=== PATIENT | female | born 1940 | race Caucasian/White ===

== ENCOUNTER 2021-07-28 06:58 | Day surgery (SDC) | payer MEDICARE ==
[2021-07-28] VITALS (7 sets, daily range): BP systolic 132–152; BP diastolic 55–82
[~2021-07-28] VITALS: Ht 170.2 cm; Wt 78.1 kg
[2021-07-28] MEDS ORDERED: albumin 25% 100mL bottle x 1 IV PRN (07:30)
[2021-07-28] MEDS ORDERED: LOSA1TAB36 PO (07:59)
== END 2021-07-28 09:55 | disposition home or self-care (01) ==
LOC: SSTAY O 06:58
PROVIDERS: ATTEND Preventive Medicine Aerospace Medicine
DX: R18.8 Other ascites (principal); I10 Essential (primary) hypertension; Z91.013 Allergy to seafood; Z79.899 Other long term (current) drug therapy
CPT/HCPCS: 49083; 87070; 87075; 88108; 88305

== ENCOUNTER 2021-08-19 06:02 | Day surgery (SDC) | payer MEDICARE ==
[~2021-08-19] VITALS: Ht 170.2 cm; Wt 74.8 kg
[~2021-08-19 06:02] MED LIST: LOSA1TAB36 PO
[2021-08-19 06:19] VITALS: BP 160/64
[2021-08-19 06:25] VITALS: BP 160/64
[2021-08-19] MEDS ORDERED: albumin 25% 100mL bottle x 1 IV PRN (06:30)
[2021-08-19 08:55] VITALS: BP 150/64
[2021-08-19 09:00] VITALS: BP 140/56
[2021-08-19 09:15] VITALS: BP 125/46
[2021-08-19 09:30] VITALS: BP 123/47
== END 2021-08-19 09:30 | disposition home or self-care (01) ==
LOC: SSTAY O 06:02
PROVIDERS: ATTEND Radiology Diagnostic Radiology
DX: R18.8 Other ascites (principal); R14.0 Abdominal distension (gaseous); I10 Essential (primary) hypertension; Z79.899 Other long term (current) drug therapy
CPT/HCPCS: 49083

== ENCOUNTER 2021-08-28 06:30 | Day surgery (SDC) | payer MEDICARE ==
[~2021-08-28] VITALS: Ht 170.2 cm; Wt 72.4 kg
[2021-08-28] MEDS ORDERED: albumin 25% 100mL bottle x 1 IV PRN (07:25)
[2021-08-28 07:38] VITALS: BP 149/71
[2021-08-28 08:14] VITALS: BP 139/88
[2021-08-28 08:30] VITALS: BP 127/62
[2021-08-28 08:45] VITALS: BP 133/60
[2021-08-28 09:00] VITALS: BP 124/59
[2021-08-28 09:10] VITALS: BP 122/52
== END 2021-08-28 09:15 | disposition home or self-care (01) ==
LOC: SSTAY O 06:30
PROVIDERS: ATTEND Radiology Diagnostic Radiology
DX: R18.8 Other ascites (principal); R14.0 Abdominal distension (gaseous); I10 Essential (primary) hypertension; C22.0 Liver cell carcinoma; Z91.013 Allergy to seafood; Z79.899 Other long term (current) drug therapy
CPT/HCPCS: 49083

== ENCOUNTER 2021-09-04 06:37 | Day surgery (SDC) | payer MEDICARE ==
[~2021-09-04] VITALS: Ht 170.2 cm; Wt 70.2 kg
[2021-09-04] MEDS ORDERED: albumin 25% 100mL bottle x 1 IV PRN (07:10)
[2021-09-04] MEDS ORDERED: ATEZOLIZUMAB (07:11)
[2021-09-04] MEDS ORDERED: AVASTIN (07:11)
[2021-09-04 07:15] VITALS: BP 161/66
== END 2021-09-04 08:55 | disposition home or self-care (01) ==
LOC: SSTAY O 06:37
PROVIDERS: ATTEND Radiology Vascular & Interventional Radiology
DX: R18.8 Other ascites (principal); Z53.8 Procedure and treatment not carried out for other reasons; R14.0 Abdominal distension (gaseous); I10 Essential (primary) hypertension; C22.0 Liver cell carcinoma; Z79.899 Other long term (current) drug therapy
CPT/HCPCS: 76705

== ENCOUNTER 2021-09-12 08:51 | Day surgery (SDC) | payer MEDICARE ==
[~2021-09-12] VITALS: Ht 170.2 cm; Wt 72.5 kg
[~2021-09-12 08:51] MED LIST changes: +ATEZOLIZUMAB; +AVASTIN; -LOSA1TAB36 PO
[2021-09-12 09:05] VITALS: BP 156/76
[2021-09-12] MEDS ORDERED: albumin 25% 100mL bottle x 1 IV PRN (09:10)
[2021-09-12] MEDS ORDERED: NO HOME MEDS (09:15)
[2021-09-12 10:20] VITALS: BP 151/73
[2021-09-12 10:34] VITALS: BP 142/80
[2021-09-12 10:49] VITALS: BP 134/67
[2021-09-12 11:04] VITALS: BP 133/68
== END 2021-09-12 11:14 | disposition home or self-care (01) ==
LOC: SSTAY O 08:51
PROVIDERS: ATTEND Preventive Medicine Aerospace Medicine
DX: R18.8 Other ascites (principal); I10 Essential (primary) hypertension; C22.0 Liver cell carcinoma; Z98.890 Other specified postprocedural states
CPT/HCPCS: 49083; 76705

== ENCOUNTER 2021-09-22 06:31 | Day surgery (SDC) | payer MEDICARE ==
[~2021-09-22] VITALS: Ht 170.2 cm; Wt 71.5 kg
[~2021-09-22 06:31] MED LIST changes: -ATEZOLIZUMAB; -AVASTIN; +NO HOME MEDS
[2021-09-22 06:45] VITALS: BP 163/72
[2021-09-22] MEDS ORDERED: normal saline 1000ml 1,000 ML IV PRN (07:00)
[2021-09-22] MEDS ORDERED: albumin 25% 100mL bottle x 1 IV PRN (07:00)
[2021-09-22] MEDS ORDERED: MULT-1085 PO (07:12)
--- NOTE | 2021-09-22 08:45 | NUR ---
No fluid per US, procedure cancelled.
== END 2021-09-22 08:45 | disposition home or self-care (01) ==
LOC: SSTAY O 06:31
PROVIDERS: ATTEND Radiology Vascular & Interventional Radiology
DX: R18.8 Other ascites (principal); Z53.8 Procedure and treatment not carried out for other reasons; R14.0 Abdominal distension (gaseous); I10 Essential (primary) hypertension; C22.0 Liver cell carcinoma; Z91.013 Allergy to seafood; Z79.899 Other long term (current) drug therapy
CPT/HCPCS: 76705

== ENCOUNTER 2021-09-30 06:51 | Day surgery (SDC) | payer MEDICARE ==
[~2021-09-30] VITALS: Ht 170.2 cm; Wt 67.7 kg
[~2021-09-30 06:51] MED LIST changes: +MULT-1085 PO; -NO HOME MEDS
[2021-09-30 07:11] VITALS: BP 154/79
[2021-09-30] MEDS ORDERED: LOSA50TA3 PO (07:17)
[2021-09-30] MEDS ORDERED: normal saline 1000ml 1,000 ML IV PRN (07:35)
[2021-09-30] MEDS ORDERED: albumin 25% 100mL bottle x 1 IV PRN (07:35)
--- NOTE | 2021-09-30 08:45 | NUR ---
Procedure cancelled due to no fluid.
== END 2021-09-30 08:45 | disposition home or self-care (01) ==
LOC: SSTAY O 06:51
PROVIDERS: ATTEND Radiology Diagnostic Radiology
DX: R18.8 Other ascites (principal); Z53.8 Procedure and treatment not carried out for other reasons; R14.0 Abdominal distension (gaseous); I10 Essential (primary) hypertension; C22.0 Liver cell carcinoma; Z88.8 Allergy status to other drugs, medicaments and biological substances; Z91.013 Allergy to seafood; Z79.899 Other long term (current) drug therapy
CPT/HCPCS: 76705

== ENCOUNTER 2021-12-01 08:04 | Day surgery (SDC) | payer MEDICARE ==
[~2021-12-01] VITALS: Ht 170.2 cm; Wt 62.0 kg
[~2021-12-01 08:04] MED LIST changes: +LOSA50TA3 PO
[2021-12-01] MEDS ORDERED: LIDOcaine 1% 30ml preserv. free vial SQ STA ×2 (08:17→08:33)
[2021-12-01 08:29] VITALS: BP 137/69
[2021-12-01] MEDS ORDERED: albumin 25% 100mL bottle x 1 IV PRN (08:30)
--- NOTE | 2021-12-01 09:12 | NUR ---
Pt procedure was cancelled per Luis Fernando CALLES
== END 2021-12-01 08:50 | disposition home or self-care (01) ==
LOC: SSTAY O 08:04
PROVIDERS: ATTEND Preventive Medicine Aerospace Medicine
DX: R18.8 Other ascites (principal); Z53.8 Procedure and treatment not carried out for other reasons; R14.0 Abdominal distension (gaseous); I10 Essential (primary) hypertension; Z85.05 Personal history of malignant neoplasm of liver; Z88.8 Allergy status to other drugs, medicaments and biological substances; Z91.013 Allergy to seafood; Z79.899 Other long term (current) drug therapy
CPT/HCPCS: 76705

== ENCOUNTER 2022-03-02 08:33 | Day surgery (SDC) | payer MEDICARE ==
[~2022-03-02] VITALS: Ht 170.2 cm; Wt 55.6 kg
[2022-03-02 08:49] VITALS: BP 144/61
[2022-03-02] MEDS ORDERED: albumin 25% 100mL bottle x 1 IV PRN (08:55)
[2022-03-02] MEDS ORDERED: PRED5TAB PO (09:07)
[2022-03-02] MEDS ORDERED: LIDOcaine 1%/PF 5ML 10 MG/ML VIAL SQ ONE (09:10)
[2022-03-02 09:45] VITALS: BP 144/61
== END 2022-03-02 09:45 | disposition home or self-care (01) ==
LOC: SSTAY O 08:33
PROVIDERS: ATTEND Radiology Vascular & Interventional Radiology
DX: R18.8 Other ascites (principal); Z53.8 Procedure and treatment not carried out for other reasons; R14.0 Abdominal distension (gaseous); I10 Essential (primary) hypertension; Z85.05 Personal history of malignant neoplasm of liver; Z88.8 Allergy status to other drugs, medicaments and biological substances; Z91.013 Allergy to seafood; Z79.899 Other long term (current) drug therapy
CPT/HCPCS: 76705

== ENCOUNTER 2022-05-05 07:09 | Day surgery (SDC) | payer MEDICARE ==
[2022-05-05] VITALS (10 sets, daily range): BP systolic 110–156; BP diastolic 47–73
[~2022-05-05] VITALS: Ht 170.2 cm; Wt 59.4 kg
[~2022-05-05 07:09] MED LIST changes: +PRED5TAB PO
[2022-05-05] MEDS ORDERED: LIDOcaine 1%/PF 5ML 10 MG/ML VIAL SQ ONE (07:30)
[2022-05-05] MEDS ORDERED: albumin 25% 100mL bottle x 1 IV PRN (07:30)
[2022-05-05] MEDS ORDERED: MORP100S7 PO (07:30)
[2022-05-05] MEDS ORDERED: ONDA-103 PO (07:31)
== END 2022-05-05 11:15 | disposition home or self-care (01) ==
LOC: SSTAY O 07:09
PROVIDERS: ATTEND Radiology Vascular & Interventional Radiology
DX: R18.8 Other ascites (principal); R14.0 Abdominal distension (gaseous); I10 Essential (primary) hypertension; Z85.05 Personal history of malignant neoplasm of liver; Z88.8 Allergy status to other drugs, medicaments and biological substances; Z91.013 Allergy to seafood; Z79.899 Other long term (current) drug therapy
CPT/HCPCS: 49083; J3490; P9047; A6258; A6449